=== PATIENT | female | born 1990 | race Caucasian/White ===

== ENCOUNTER 2022-08-02 23:09 | Emergency (ER) | payer OTHER, SELFPAY ==
--- NOTE | ~2022-08-02 | XR_ITS ---
EXAMINATION: XR tibia fibula RT 2V DATE: 08/03/2022 01:56 INDICATION: Puncture wound to the right lower leg TECHNIQUE: Anteroposterior and lateral views of the right tibia and fibula were obtained. COMPARISON: None. FINDINGS: Alignment is normal. No fracture. Joint spaces are normal. Soft tissues are unremarkable. No radiopaq ue foreign bodies. IMPRESSION: 1. No osseous abnormality or radiopaque foreign body Reviewed, dictated and finalized at location A.
[2022-08-02 23:17] VITALS: BP 96/73; PULSE 69; RESP 16; TEMP 36.5; O2SAT 100
[2022-08-03] MEDS: TETANUS,DIPHTHERIA,AC PERTUSSIS ADULT (0.5 ML) BOOSTRIX IM (00:02)
--- NOTE | 2022-08-03 01:42 | ED.GENADULT ---
HPI - General Adult General Chief complaint: Wound/Laceration Stated complaint: R leg puncture Time Seen by Provider: 08/03/22 00:42 Source: patient Mode of arrival: ambulatory Limitations: no limitations History of Present Illness HPI narrative: Patient is a 31-year-old female who presents the ED with report of a puncture wound to her right posterior calf. 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 She tried to move a chair and this accidentally fell off the wall, with the metal sword part puncturing her right calf. No other injuries. No numbness, tingling. Tetanus status unknown. Related Data Allergies Allergy/AdvReac Type Severity Reaction Status Date / Time No Known Allergies Allergy Verified 08/03/22 00:01 Review of Systems Review of Systems: CONSTITUTIONAL: Denies fever, chills, or sweats. SKIN: Reports puncture wound to right calf. NEUROLOGIC: Denies tingling, numbness, or weakness. All systems reviewed & are unremarkable except as noted in HPI and below PMFSH Past Medical History Medical History (Updated 08/03/22 @ 02:30 by Romina Carter PA-C) No pertinent past medical history Surgical History Surgical History (Updated 08/03/22 @ 02:03 by Romina Carter PA-C) No pertinent past surgical history Social History Social History (Updated 08/03/22 @ 02:03 by Romina Carter PA-C) Smoking status: Never smoker Exam Narrative: GENERAL: Well appearing, thin, non-toxic, in no acute distress. HEAD: Normocephalic, atraumatic. NECK: Supple. No adenopathy, no masses. RESPIRATORY: Airway patent, respirations nonlabored. CARDIOVASCULAR: Regular rate and rhythm without murmurs, rubs, or gallops. Pedal pulses 2+ and equal bilaterally. MUSCULOSKELETAL: Moves all extremities. Strength/ROM intact without gross deformities. 1 cm laceration/puncture wound to right proximal calf, slightly gaping, no active bleeding at this time. Smaller 0.25 cm laceration medially and slightly distal to the larger laceration, appearing to be exit wound for puncture. Sensation intact. SKIN: Warm, dry, normal color. No rashes. NEURO: A&O X3. Speech clear. Cranial nerves II-XII grossly intact. Steady gait. No ataxic movements. PSYCHIATRIC: Appropriate mood and affect. Normal interaction. Course Vital Signs Vital signs: Vital Signs Temperature 97.7 F 08/02/22 23:17 Pulse Rate 69 08/02/22 23:17 Respiratory Rate 16 08/02/22 23:17 Blood Pressure 96/73 L 08/02/22 23:17 Pulse Oximetry 100 08/02/22 23:17 Oxygen Delivery Room Air 08/02/22 23:17 Temperature 97.7 F 08/02/22 23:17 Pulse Rate 69 08/02/22 23:17 Respiratory Rate 16 08/02/22 23:17 Blood Pressure 96/73 L 08/02/22 23:17 Pulse Oximetry 100 08/02/22 23:17 Oxygen Delivery Room Air 08/02/22 23:17 Procedures Laceration Laceration 1: Date: 08/03/22 Time: 02:20 Site: lower extremity (calf) Side (If applicable): right Size (cm): 1 Description: linear Depth: simple, single layer Local Anesthetic: lidocaine 1% and with epi Amount of anesthesia used (mL): 5 Pre-repair: wound explored and irrigated extensively ====== Skin Level ====== Skin layer closed with: nylon Size (cm): 4-0 Number of sutures: 2 Technique: simple, interrupted ====== Subcutaneous Layer ====== ====== Muscle Layer ====== ====== Tendon Layer ====== Medical Decision Making MDM Narrative Medical decision making narrative: Puncture wound to right proximal calf. Neurovascularly intact on exam. Wound was thoroughly irrigated. No foreign body identified. X-ray without signs of foreign body or osseous involvement. Due to length of laceration and slight gaping nature, 2 stitches were placed loosely to close wound to assist in healing. Patient tolerat
[2022-08-03] MEDS: ceFAZolin SODIUM 1 GM VIAL IM (01:55)
[2022-08-03] MEDS: LIDO 1%/EPINEPHRINE 1:100,000 10 ML VIAL (01:55)
[2022-08-03 02:40] VITALS: BP 98/71; PULSE 70; RESP 16; O2SAT 98
== END 2022-08-03 02:41 | disposition home or self-care (01) ==
PROVIDERS: Emergency Provider Emergency Medicine
DX: S81.831A Puncture wound without foreign body, right lower leg, initial encounter (principal); W20.8XXA Other cause of strike by thrown, projected or falling object, initial encounter; Z23 Encounter for immunization
CPT/HCPCS: 12001; 73590; 90471; 90715; 96372; 99283; J0690